=== PATIENT | female | born 1960 | race Caucasian/White ===

== ENCOUNTER 2017-12-30 11:50 | Day surgery (SDC) | payer BC ==
[~2017-12-30 11:50] MED LIST: Buffered Lidocaine 0.9% SYRIN* 5 ML/SYR SYRINGE INTRADERM ONE; Dexamethasone TAB* 4 MG PO ONE; DiMENhydriNATE IV* 50 MG/ML VIAL IV PUSH PRN; Famotidine IV* 10 MG/ML 2 ML (20 mg) IV ONE; Levalbuterol 0.63MG/3ML NEB* UNIT OF USE INH PRN; Morphine INJ* 2 MG/ML 1 ML CARPUJECT IV PRN; Naloxone* 0.4 MG/ML 1 ML VIAL IV PRN; Ondansetron INJ* 2 MG/ML VIAL ONE; PROCHLORPERAZINE INJ 5 MG/ML 2 ML VIAL IV PRN; Scopolamine 1.5 mg* PATCH TRANSDERM ONE; fentaNYL* 50 MCG/ML 2 ML VIAL (100 MCG VIAL) IV PRN; oxyCODONE/Acetamin 5/325 MG* TAB PO PRN
[2017-12-30] MEDS ORDERED: Famotidine IV* 10 MG/ML 2 ML (20 mg) ONE (12:00)
[2017-12-30] MEDS ORDERED: Scopolamine 1.5 mg* PATCH ONE (12:01)
[2017-12-30] MEDS ORDERED: Dexamethasone TAB* 4 MG ONE (12:01)
[2017-12-30] MEDS ORDERED: Ondansetron ODT TAB* 4 MG ONE (12:01)
[2017-12-30] MEDS ORDERED: fentaNYL* 50 MCG/ML 2 ML VIAL (100 MCG VIAL) ONE (13:32)
[2017-12-30] MEDS ORDERED: Midazolam* 1 MG/ML 5 ML VIAL (5 MG) ONE (13:33)
[2017-12-30] MEDS ORDERED: KETAMINE HCL* 50 MG/ML 10 ML VIAL ONE (13:37)
[2017-12-30] MEDS ORDERED: Neostigmine Methylsulfate* 1 MG/ML 10 ML VIAL (1 mg/ml) ONE (14:18)
[2017-12-30] MEDS ORDERED: EPHEDrine (Pressors)* 50 MG/ML VIAL ONE (14:18)
[2017-12-30] MEDS ORDERED: Propofol* 10 MG/ML 20 ML BTL IV PUSH ONE (14:18)
[2017-12-30] MEDS ORDERED: Glycopyrrolate IV* 0.2 MG/ML 1 ML VIAL ONE (14:18)
[2017-12-30] MEDS ORDERED: Metoprolol Tartrate IV* 1 MG/ML 5 ML VIAL ONE (14:18)
[2017-12-30] MEDS ORDERED: Lidocaine 2% PF* 10 ML AMP ONE (14:18)
[2017-12-30] MEDS ORDERED: Levalbuterol 0.63MG/3ML NEB* UNIT OF USE INH ONE (16:22)
[2017-12-30 16:54] VITALS: BP 98/66
--- NOTE | 2017-12-31 13:58 | PRO ---
BRONCHOSCOPY REPORT: DATE OF PROCEDURE: 12/30/17 PROCEDURE PERFORMED: Bronchoscopy with endobronchial ultrasound-guided fine needle aspiration of station LR4, station 7, L4, L10, endobronchial biopsy, and bronchoalveolar lavage. PREPROCEDURAL DIAGNOSIS: Lung mass, mediastinal adenopathy. ANESTHESIA: General. ANESTHESIOLOGIST: Dr. Ann. DESCRIPTION OF PROCEDURE: Informed consent was obtained from the patient prior to the procedure after all the risks and benefits including risk of pneumothorax was discussed. The patient was intubated with size 8.0 endotracheal tube. Flexible Olympus bronchoscope was then inserted for airway inspection. There was evidence of endotracheal lesion in the right upper lobe bronchus with mucosal irregularity and narrowing of lateral subsegment. Bronchoscope was then withdrawn and EBUS bronchoscope was inserted. R4 was minimally enlarged and was sampled with 4 passes. Rapid onsite evaluation revealed lymphatic tissue. Station 7 was then accessed with 4 passes. Rapid onsite evaluation revealed lymphatic tissue, no malignant cells were noted. Station R10, L4 were also sampled, lymphatic tissue was seen. No malignant cells were noted. Endobronchial biopsies were then obtained. Bronchoalveolar lavage was also obtained from right upper lobe bronchus and was sent for cytological examination. The patient tolerated the procedure well. The patient was extubated and seen in the recovery area in optimal condition. Rest of the specimen was placed in formalin and sent for further evaluation. [id number] #: [id number] MTDD
[2018-01-02] MEDS ORDERED: Scopolamine PATCH Remove* 1 NOTE MISC PATCH OFF ONE (06:00)
== END 2017-12-30 17:14 | disposition home or self-care (01) ==
LOC: OR 11:50
PROVIDERS: ATTEND Internal Medicine
DX: C34.12 Malignant neoplasm of upper lobe, left bronchus or lung (principal); F17.210 Nicotine dependence, cigarettes, uncomplicated; R59.0 Localized enlarged lymph nodes; I25.10 Atherosclerotic heart disease of native coronary artery without angina pectoris; F32.9 Major depressive disorder, single episode, unspecified; I25.2 Old myocardial infarction; I73.9 Peripheral vascular disease, unspecified
CPT/HCPCS: 88172; 88173; 88305; 88341; 88342; 88360; A9270-GY; J2001; J2250; J2704; J2710; J3010; J3490; J8540